=== PATIENT | male | born 1985 | race Caucasian/White ===

== ENCOUNTER → 2017-07-25 | Outpatient (CLI) | payer OTHER ==
[2017-07-25 13:03] LABS: BASO % 0.2 %; BASO ABS # 0.02 K/uL (0-0.2); COMPLETE YES; EOS % 2.3 %; HEMATOCRIT 46.8 % (42-52); IG% 0.2 %; LYMPH % 35.4 %; LYMPH ABS # 3.14 K/uL (1.2-3.4); MEAN CELL VOLUME 91.6 fL (80-100); MEAN CORPUSCULAR HEMOGLOBIN 30.5 pg (25-34); MEAN CORPUSCULAR HGB CONC 33.3 g/dl (32-36); MEAN PLATELET VOLUME 9.8 fL (7.4-10.4); MONO % 7.7 %; NEUT % 54.2 %; PLATELET COUNT 258 K/uL (130-400); RED BLOOD COUNT 5.11 M/uL (4.7-6.1); WHITE BLOOD COUNT 8.86 K/uL (4.8-10.8)
[2017-07-25 13:38] LABS: BLOOD UREA NITROGEN 19 mg/dl (7-18); BUN/CREATININE RATIO 23.8 (10-20); CALCIUM 9.1 mg/dl (8.5-10.1); CARBON DIOXIDE 24 mmol/L (21-32); CHLORIDE 108 mmol/L (98-107); CREATININE 0.79 mg/dl (0.60-1.40); GLUCOSE 93 mg/dl (70-99); POTASSIUM 3.6 mmol/L (3.5-5.1); SODIUM 143 mmol/L (136-145)
[2017-07-25 13:50] LABS: CHOLESTEROL 184 mg/dl (0-200); CHOLESTEROL/HDL RATIO 4.7; HDL CHOLESTEROL 39 mg/dl; LDL CHOLESTEROL CALCULATED 115 mg/dl; TRIGLYCERIDES 149 mg/dl (0-150); VERY LOW DENSITY LIPOPROT CALC 30 mg/dl
== END | disposition home or self-care (01) ==
LOC: C.LAB1850 10:48
PROVIDERS: ATTEND Nurse Practitioner Adult Health
DX: F17.200 Nicotine dependence, unspecified, uncomplicated (principal); Z13.1 Encounter for screening for diabetes mellitus